=== PATIENT | male | born 2000 | race Caucasian/White ===

== ENCOUNTER 2020-06-03 17:00 | Emergency (ER) | payer OTHER, SELFPAY ==
[2020-06-03 17:09] VITALS: BP 125/56; PULSE 74; RESP 16; TEMP 36.8; O2SAT 100
--- NOTE | 2020-06-03 17:15 | ED.SKABFB ---
HPI - Skin/Abscess/Foreign Bdy General Chief complaint: Skin/Abscess/Foreign Body Stated complaint: rash on legs/torso/arms Time Seen by Provider: 06/03/20 17:15 Source: patient and RN notes reviewed Mode of arrival: ambulatory Limitations: no limitations History of Present Illness HPI narrative: 19-year-old male presents with concern for rash. He reports exposure to poison gemma 4 days ago. Reports progressively worse rash on bilateral arms, legs, torso, face. Reports bilateral legs and feet are swollen and red. Denies fever, nausea vomiting, diarrhea, trouble breathing, trouble swallowing, swollen lips, swollen tongue. Denies any intervention other than Tylenol complaint: rash Related Data Home Medications Medication Instructions Recorded Confirmed quetiapine 50 mg PO HS 06/03/20 06/03/20 Allergies Allergy/AdvReac Type Severity Reaction Status Date / Time No Known Allergies Allergy Unknown Verified 06/03/20 17:15 Review of Systems Review of Systems: Narrative: CONSTITUTIONAL: Denies malaise, chills, sweats, or fever. EYES: Denies visual changes. Reports rash near eyes ENT: Denies difficulty swallowing, breathing CARDIOVASCULAR: Denies chest pain, palpitations RESPIRATORY: Denies cough or dyspnea. GASTROINTESTINAL: Denies abdominal pain, nausea, vomiting, diarrhea SKIN: Reports itchy generalized rash. Reports swollen, red ankles and feet MUSCULOSKELETAL: Denies musculoskeletal pain or myalgia. NEUROLOGIC: Denies numbness, weakness. All systems reviewed & are unremarkable except as noted in HPI and below PMFSH Comments At time of signature, agree with nursing past medical, surgical, social and family history. There is no relevant family history pertinent to the presenting complaint Exam Narrative: Exam Narrative: GENERAL: Well-appearing, well-nourished, and in no acute distress. HEAD: Normocephalic, atraumatic. EYES: PERRLA, conjunctivae clear, and EOMI. No nystagmus. ENT: Nares clear, turbinates pink, no rhinorrhea or epistaxis. Mucous membranes moist. TM pearly rodríguez with sharp light reflex bilaterally; no tragal tenderness. Oropharynx without erythema or lesions. Tonsils not enlarged and without exudate. NECK: Supple. No lymphadenopathy. No jugular venous distension, thyromegaly, or carotid bruits. Carotids were easily palpable bilaterally. CHEST: No respiratory distress. Clear to auscultation. No bony deformities, no asymmetry. Speaks in full sentences. HEART: Regular rate and rhythm. No murmur heard. Normal peripheral pulses. ABDOMEN: Soft, nontender, nondistended, normal active bowel sounds, no palpable masses. EXTREMITIES: Normal range of motion. No edema. Normal strength and sensation. SKIN: Warm, dry, no rash. NEURO: Alert and oriented x3. No focal deficits. Cranial nerves II through XII grossly intact PSYCH: Normal mood and affect Course Course Emergency Course: Patient is aware of diagnosis, understands and agrees to treatment plan. Anticipatory guidance given. Patient agrees to follow-up as directed and is aware of reasons to seek care at the emergency department. Portions of this record may have been created with voice recognition software Vital Signs Vital signs: Vital Signs Temperature 98.3 F 06/03/20 17:09 Pulse Rate 74 06/03/20 17:09 Respiratory Rate 16 06/03/20 17:09 Blood Pressure 125/56 L 06/03/20 17:09 Pulse Oximetry 100 06/03/20 17:09 Temperature 98.3 F 06/03/20 17:09 Pulse Rate 74 06/03/20 17:09 Respiratory Rate 16 06/03/20 17:09 Blood Pressure 125/56 L 06/03/20 17:09 Pulse Oximetry 100 06/03/20 17:09 Reviewed. MDM - Skin/Abscess/Foreign Bdy MDM Narrative Medical decision making narrative: Does not appear at this time to be erythema multiforme, bullous, SJS, TEN; no evidence at this time to suggest RMSF, endocarditis or Lyme disease; patient looks well, nontoxic and is tolerating oral intake; no neurologic signs or symptoms; no headache, photophobi
[2020-06-03] MEDS: methylPREDNISolone SOD SUCC 125 MG VIAL IM (17:29)
== END 2020-06-03 17:49 | disposition home or self-care (01) ==
PROVIDERS: Emergency Provider Nurse Practitioner; PCP Internal Medicine
DX: L25.5 Unspecified contact dermatitis due to plants, except food (principal); L03.119 Cellulitis of unspecified part of limb; F31.9 Bipolar disorder, unspecified
CPT/HCPCS: 96372; 99203; G0463; J2930

== ENCOUNTER 2021-09-09 13:12 | Emergency (ER) | payer OTHER, SELFPAY ==
[2021-09-09 13:15] VITALS: BP 111/75; PULSE 128; RESP 24; TEMP 36.6; O2SAT 99
--- NOTE | 2021-09-09 13:29 | ED.ANXIETY ---
HPI - Anxiety General Chief Complaint: Anxiety Stated Complaint: anxiety attack,shortness of breath Time Seen by Provider: 09/09/21 13:30 Source: patient and RN notes reviewed Mode of arrival: ambulatory Limitations: no limitations History of Present Illness HPI narrative: Patient is a 20-year-old male patient who ambulated into the [facility] today patient states he stayed up all night last night drinking with friends. Patient states he woke woke up feeling anxious. Patient states he is worried about what he did from the hours of 4-9 this morning. Patient states he does not remember. Patient told the nurse he drove a float for his sister's volleyball team. Related Data Home Medications Medication Instructions Recorded Confirmed No Home Medications 09/09/21 09/09/21 Allergies Allergy/AdvReac Type Severity Reaction Status Date / Time No Known Allergies Allergy Unknown Verified 09/09/21 13:31 Review of Systems Review of Systems: CONSTITUTIONAL: Denies body aches, fever, chills, or sweats. EYES: Denies visual changes, redness, or discharge. ENT: Denies rhinorrhea, congestion, sore throat, or otalgia. CARDIOVASCULAR: Denies chest pain, palpitations, or edema. RESPIRATORY: Denies cough or dyspnea. GASTROINTESTINAL: Denies abdominal pain, nausea, vomiting, or diarrhea. GENITOURINARY: Denies dysuria or hematuria. SKIN: Denies rash, itching, or wounds. MUSCULOSKELETAL: Denies back pain, joint pain, or myalgia. NEUROLOGIC: Denies headache, numbness, tingling, or weakness. PSYCH: Denies depression + anxiety. All systems reviewed & are unremarkable except as noted in HPI and below PMFSH Social History Social History Substance use type: does not use Comments At time of signature, I have reviewed and agree with nursing past medical, surgical, social and family history unless otherwise noted. Please see nursing chart for further information. There is no relevant family history pertinent to the presenting complaint Exam Narrative: GENERAL: Well-appearing, well-nourished, and in no acute distress. HEAD: Normocephalic, atraumatic. EYES: EOMI. No redness or drainage. Conjunctivae normal. ENT: Mucous membranes pink and moist. Nares clear. No rhinorrhea. NECK: Normal AROM. Supple. HEART: Regular rate and rhythm. No murmur appreciated. Normal peripheral pulses. MUSCULOSKELETAL: No bony tenderness. EXTREMITIES: Normal range of motion. No edema. SKIN: Warm, dry, no rash. Capillary refill normal. Normal skin turgor. NEURO: No focal deficits. Alert and oriented x3. Gait steady. PSYCH: Normal affect. Patient hands shaky, heart rate increases. patient holding normal conversation and interacting appropriately. Course Vital Signs Vital signs: Vital Signs Temperature 36.6 C 09/09/21 13:15 Pulse Rate 128 H 09/09/21 13:15 Respiratory Rate 24 H 09/09/21 13:15 Blood Pressure 111/75 09/09/21 13:15 Pulse Oximetry 99 09/09/21 13:15 Temperature 36.6 C 09/09/21 13:15 Pulse Rate 128 H 09/09/21 13:15 Respiratory Rate 24 H 09/09/21 13:15 Blood Pressure 111/75 09/09/21 13:15 Pulse Oximetry 99 09/09/21 13:15 Patient reviewed MDM - Anxiety Differential Diagnosis Differential diagnosis: Likely hyperventilation and acute anxiety Medical Records Attestation: I reviewed the patient's medical records. Critical Care Time Critical Care Time Critical Care Time: No Discharge Plan Discharge Clinical Impression: Acute anxiety Hangover Qualifiers: Complication of substance-induced condition: uncomplicated Qualified Code(s): F10.120 - Alcohol abuse with intoxication, uncomplicated Patient Disposition: Home, Self-Care Condition: Stable Instructions: Antibiotic Form, Anxiety (ED) Additional Instructions: Increase fluids and electrolyte drinks May take Bendaryl 1-2 tablets for sleep tonight. Follow up with y our PCP on Mon
== END 2021-09-09 13:42 | disposition home or self-care (01) ==
PROVIDERS: Emergency Provider Nurse Practitioner Family; PCP Internal Medicine
DX: F41.9 Anxiety disorder, unspecified (principal); F10.120 Alcohol abuse with intoxication, uncomplicated
CPT/HCPCS: 99211; G0463

== ENCOUNTER 2025-07-03 18:38 | Emergency (ER) | payer OTHER, SELFPAY ==
--- OUTSIDE RECORDS SUMMARY | 2025-07-03 18:41 | XMS_ITS | Clinical Summary ---
Author Organization [facility] Address [address] [place] [address] Care Team Providers Care Healthcare Analyst Name Role Phone Dixie eHnry Primary Care Provider [phone] Fran Ortega MD Unavailable + [phone] Chris Alfred MD Unavailable [phone] Allergies No known active allergies Medications fluticasone propionate (FLONASE) 50 mcg/actuation nasal sprayIndications :Intractable headache, unspecified chronicity pattern, unspecified headache type Administer 2 sprays into each nostril daily 1 each 4 Active amitriptyline (ELAVIL) 10 mg tabletIndication s:Migraine without aura and without status migrainosus, not intractable Take 1 tablet (10 mg total) by mouth nightly 90 tablet 1 4 Active omeprazole (PriLOSEC) 20 mg capsule Take 1 capsule (20 mg total) by mouth daily 90 capsule 3 5 Active Active Problems Problem Noted Date Diagnosed Date Intractable headache, unspec ified chronicity pattern, unspecified headache type 09/30/2024 Overweight (BMI 25.0-29.9) 01/13/2024 Assessment & Plan (01/13/2024 8:10 AM [facility] [employer] [facility]): BMI Follow-up includes: nutrition counseling. Class 1 obesity due to exces s calories without serious comorbidity with body mass index (BMI) of 30.0 to 30.9 in adult 12/31/2023 Assessment & Plan (12/31/2023 1:24 PM [facility]): Reviewed BMI Focus on healthy diet options Work on healthy changes Migraine without aura and wi thout status migrainosus, not intractable 04/10/2023 Assessment & Plan (12/31/2023 1:26 PM [employer]): Chronic and stable. Continue Excedrin as needed. If migraines worsen or no longer respond to [id number] medication patient will follow-up. ZAIN (generalized anxiety disorder) 01/03/2023 Assessment & Plan (12/31/2023 1:25 PM [employer]): Chronic and controlled without medication. Patient is doing well. Follow-up as needed for new or worsening symptoms. Assessment & Plan (01/03/2023 11:45 AM [employer]): Chronic and uncontrolled. Symptoms have been worsening for the past 2 months. He is interested in starting medication again. He previously took Zoloft and did well. However, with his history of bipolar disorder I am concerned about potentially precipitating a manic episode. Since he is currently denying any depression and bipolar symptoms, will treat his anxiety with BuSpar. Side effects discussed. He was agreeable to this plan. I have also prescribed hydroxyzine to take as needed for anxiety or panic attacks. I have asked him to send me a [employer] message in about 2 weeks to let me know how he is doing. We can increase the dose if needed. Patient voiced understanding and agreement with this plan. All questions answered today. Depression, major, recurrent 01/03/2023 Assessment & Plan (12/31/2023 1:24 PM [employer]): Chronic. See above. Bipolar disorder 01/03/2023 Assessment & Plan (12/31/2023 1:24 PM [employer]): Chronic. See above. Routine adult health maintenance 12/10/2022 Overview (12/11/2022): Health Maintenance: -PCV20: N/A -Tdap vaccine: 2022 -Influenza vaccine: due -Shingles vaccine: N/A -Colonoscopy: N/A -Last PSA: N/A -Last eye exam: N/A -Last MHA: N/A Assessment & Plan (12/31/2023 1:27 PM [employer]): Health Maintenance: -PCV20: N/A -Tdap vaccine: 2022 -Influenza vaccine: due -Shingles vaccine: N/A -Colonoscopy: N/A -Last PSA: N/A -Last eye exam: N/A -Last MHA: N/A Recommend annual flu shots. Patient is up-to-date on Tdap. Work on healthy diet and exercise habits. See me annually for routine physicals. Vitamin D deficiency 11/09/2022 Gastroesophageal reflux disease 11/06/2022 Assessment & Plan (07/28/2024 7:57 PM CDT): EGD 07/15/2024 that showed chronic inflammation in the GE junction without signs of intestinal metaplasia, moderate chronic active gastritis negative for H pylori. Patient currently taking omeprazole 40 mg daily with reflux well-controlled. Plan Continue 40 mg omeprazole for 3 more months then decrease to 20 mg daily. Continue to follow anti-reflux lifestyle modifications Assessment & Plan (05/15/2024 8:39 AM CDT): Epigastric burning radiating up to chest associated with sour taste in mouth Started 2 years ago progressively getting worse Took prilosec previously for about 30 days which helped but symptoms came back after stopping it Then tried famotidine 20 mg without significant relief Takes tums all the time like candies Could not find any trigger foods No dysphagia, odynophagia Eats a lot of red meat with hamburger and steak, works shift work, usually does not eat at least 4-5 hours before bedtime Takes NSAIDs as needed No known family history of colon cancer, liver disease, inflammatory bowel disease, or other GI pathologies No smoking, drinks about 2 days a week, no illicit drug use. Labs reviewed from 01/2024 that showed mildly elevated potassium 5.2 otherwise normal BMP, TSH, CBC No prior endoscopies Plan Start omeprazole 40 mg daily, take 30 minutes before breakfast Given refractory symptoms will schedule EGD to assess for esophagitis, hiatal hernia Follow antireflux lifestyle modifications Assessment & Plan (12/31/2023 1:25 PM [employer]): Chronic and worsening. Will try Pepcid 20 mg b.i.d.. If no improvement after 1 month patient will let me know, will refer to GI for EGD. Encouraged healthy diet and exercise, work on weight loss Avoid trigger foods including: caffeine, spicy, fried foods, tomatoes. Eat small meals throughout the day. Do not eat right before bed. No late night snacking Do not lay down after eating. Abnormal electrocardiogram 11/06/2022 Resolved Problems Problem Noted Date Diagnosed Date Resolved Date Other abnormal glucose 11/09/202212/30 Right elbow tendonitis 07/28/201812/10 Right shoulder strain 12/17/20172022 Encounter for routine child health examination without abnormal findings 06/20/2017 Otitis media 02/11/2017 06/29/2022 Overview (04/05/2017): Otitis media Chest pain 11/15/2016 06/29/2022 Overview (02/14/2017): Chest pain Viral enteritis 11/15/2016 09/23/2020 Overview (02/14/2017): Viral intestinal infection Sinusitis 10/11/2014 06/29/2022 Overview (02/14/2017): Sinusitis Immunizations Immunization Administration Dates Next Due HPV, Quadrivalent 11/12/2012,07/11/2012,03/23/20 12 Influenza, Trivalent, Cell Culture-based MDCK, Preservative Free, Antibiotic Free, Intramuscular 09/04/2004 Influenza, Trivalent, IM (MDV) 09/21/2013,2011 Influenza, Unspecified 10/06/2024(Deferr ed: Patient Refused),08/11/2023(Deferred: Patient Refused),08/11/2022(Deferred: Patient Refused),08/11/2021(Deferred: Patient Refused) Meningococcal ACWY, Unspecified 04/10/2012 Meningococcal MCV4P (Menactra) 06/20/2017 Tdap 12/11/2022,04/10/2012 Varicella 06/14/2015 Surgical History Surgery Date Site/Laterality Comments NO PAST SURGERIES Medical History Medical History Date Comments Chronic chest pain Family History Medical History Relation Name Comments Heart attack Maternal Grandfather Quinton Bain Cancer Mother's Sister Marah dominguez Other Other No family histo ry of Early cardiac <50; Relation Name Status Comments Maternal Grandfather Quinton Bain Mother's Sister Marah dominguez Other Social History Tobacco Use Types Packs/Day Years Used Date Smoking Tobacco: Former Cigarettes 0 2 1 12/12/2018 - 10/11/2021 Vaping Smokeless Tobacco: Former Chew Quit: 10/26/2022 Tobacco Cessation:Counseling Given: Not Answered Alcohol Use Standard Drinks/Week Comments Defer 0 (1 standard drink = 0.6 oz pur e alcohol) [facility] [employer] Answer Date Recorded In the past 12 months has [facility] [employer], gas, oil, or water [employer] threatened to shut off services in your home? No 10/01/2024 Humiliation, Afraid, Rape, and Kick questionnair e Answer Date Recorded Within the last year, have y ou been afraid of your partner or ex-partner? No 10/01/2024 Within the last year, have y ou been humiliated or emotionally abused in other ways by your partner or ex-partner? No Within the last year, have y ou been kicked, hit, slapped, or otherwise physically hurt by your partner or ex-partner? No 10/01/2024 Within the last year, have y ou been raped or forced to have any kind of sexual activity by your partner or ex-partner? No 10/01/2024 Social Connection and Isolation Panel Answer Date Recorded In a typical week, how many times do you talk on the phone with family, friends, or neighbors? More than three times a week 10/01/2024 How often do you get togethe r with friends or relatives? More than three times a week 10/01/2024 How often do you attend chur ch or yazidism services? Never 10/01/2024 Do you belong to any clubs o r organizations such as anglican groups, unions, fraternal or athletic groups, or school groups? No 10/01/2024 How often do you attend meet ings of the clubs or organizations you belong to? Never 10/01/2024 Are you , , di vorced, , never , or living with a partner? Never 10/01/2024 AUDIT-C Answer Date Recorded Q1: How often do you have a drink containing alc ohol? 2-3 times a week 10/01/2024 Q2: How many drinks containi ng alcohol do you have on a typical day when you are drinking? 3 or 4 10/01/2024 Q3: How often do you have si x or more drinks on one occasion? Monthly 10/01/2024 Overall Financial Resource Strain (CARDIA) Answe r Date Recorded How hard is it for you to pa y for the very basics like food, housing, medical care, and heating? Not hard at all 10/01/2024 PHQ-2 Answer Date Recorded PHQ-2 Total Score (If total score is 3 or more points, staff should administer the PHQ-9) 0 10/27/2024 [facility] - Occupational Stress Questionnaire Answer Date Recorded Do you feel stress - tense, restless, nervous, or anxious, or unable to sleep at night because your mind is troubled all the time - these days? To some extent 10/01/2024 Exercise Vital Sign Answer Date Recorde d On average, how many days pe r week do you engage in moderate to strenuous exercise (like a brisk walk)? 7 days 10/01/2024 On average, how many minutes do you engage in exercise at this level? 60 min 10/01/2024 Hunger Vital Sign Answer Date Recorded Within the past 12 months, y ou worried that your food would run out before you got the money to buy more. Never true 10/01/20 24 Within the past 12 months, t he food you bought just didn't last and you didn't have money to get more. Never true 10/01/2024 PRAPARE - Transportation Answer Date Re corded In the past 12 months, has l ack of transportation kept you from medical appointments or from getting medications? No 09/12 In the past 12 months, has l ack of transportation kept you from meetings, work, or from getting things needed for daily living? No 10/01/2024 PHQ-9 Answer Date Recorded PHQ-9 Total Score 0 10/01/2024 Housing Stability Vital Sign Answer Michael e Recorded In the last 12 months, was t here a time when you were not able to pay the mortgage or rent on time? No 10/01/2024 In the past 12 months, how m any times have you moved where you were living? 0 10/01/2024 At any time in the past 12 m [facility], were you homeless or living in a custodial (including now)? No 10/01/2024 Personal Safety Answer Date Recorded Have you ever been in or are you currently in a harmful physical or emotional relationship or is someone making you feel afraid or unsafe? Denies 09/30/2024 Sex and Gender Information Value Date Recorded Sex Assigned at Not on file Legal Sex Male 7:12 PM [employer] Gender Identity Male 04/04/2023 4:06 PM CDT Sexual Orientation Not on file Obstetrics History Last Filed Vital Signs Vital Sign Reading Time Taken Comments Blood Pressure 110/74 10/27/2024 7:36 AM [employer] [employer] Pulse 78 10/27/2024 7:36 AM [employer] Temperature 36.6 C (97.8 F) 10/27/2024 7:36 AM [employer] Respiratory Rate 16 10/27/2024 7:36 AM [employer] Oxygen Saturation 98% 10/27/2024 7:36 AM [employer] Inhaled Oxygen Concentration - - Weight 99.2 kg (218 lb 11.2 oz) 10/27/2024 7:36 AM [employer] Height 175.3 cm (5' 9) 10/27/2024 7:36 AM [employer] Body Mass Index 32.3 10/27/2024 7:36 AM [employer] Plan of Treatment Health Maintenance Due Date Last Done Comments Hepatitis C Screening 2000 Varicella Vaccines (2 of 2 - 13+ 2-dose series) 07/12/2015 06/14/2015 Hepatitis B Screening 2018 Regular Well Visit/Exam 18-64 12/31/2024 12/31/2023 Influenza Vaccine (#1) 2025 3, 10/09/2012, 09/04/2004 Depression Screening 10/27/2025 10/27/2024, 10/01/2024, 01/13/2024, Additional history exists DTaP/Tdap/Td Vaccine (3 - Td or Tdap) 12/11/2032 12/11/2022, 04/10/2012 HPV Vaccines Completed 11/12/2012, 06/13, 03/23/2012 Pneumococcal vaccine <65 Aged Out No longer eligible based on patient's age to complete this topic Insurance [place] [id number] [facility] [place] [employer] Advance Directives For more information, please contact: [phone] * Full Code (Latest Code Status on File) Date Activated Date Inactivated Comments 09/30/2024 11:52 PM 10/01/2024 8:07 PM * Full Code Date Activated Date Inactivated Comments 09/30/2024 11:06 PM 09/30/2024 11:52 PM * Full Code Date Activated Date Inactivated Comments 07/17/2024 9:00 AM 07/17/2024 2:54 PM * Full Code Date Activated Date Inactivated Comments 07/17/2024 9:00 AM 07/17/2024 9:00 AM Care Teams Healthcare Analyst Relationship Specialty Start Date End Date Dixie Henry PA [address] [place], [place] [id number] PCP - General Family Medicine 12/13/22 Fran Ortega MD [address] [place] [address] Consulting Physician Family Medicine 12/13/22 Chris Alfred MD [address] [place] [address] [place] [address] Consulting Physician Neurology 10/01/24
[2025-07-03 18:46] VITALS: BP 122/89; PULSE 95; RESP 18; TEMP 36.1; O2SAT 97
--- NOTE | 2025-07-03 19:01 | PC.NURSE ---
report to lui dominguez
--- NOTE | 2025-07-03 19:17 | PC.NURSE ---
steri strips placed over laceration line that has dermabond on it. patient is aware to not pull on steri stips or to leave submerged in water. finger splint placed over thumb laceration
--- NOTE | 2025-07-03 19:18 | ED.WOUNDLAC ---
HPI - Wound/Laceration General Chief Complaint: Wound/Laceration Stated Complaint: hand laceration Time Seen by Provider: 07/03/25 18:56 Source: patient Mode of arrival: ambulatory Limitations: no limitations History of Present Illness HPI narrative: this is a 24-year-old male that has a non gaping laceration to the distal right thumb currently no bleeding no numbness or tingling has good range of motion no other injuries noted. Onset (ago): hour(s) Extremity Location: Right: hand ( Distal right thumb laceration approximately 2cm in length on gait) Place: outdoors Context: accidental Associated symptoms: none Related Data Home Medications ?Medication ?Instructions ?Recorded ?Confirmed ?Last Taken ?Type No Home Medications 09/09/21 09/09/21 Unknown History Allergies Allergy/AdvReac Type Severity Reaction Status Date / Time No Known Allergies Allergy Unknown Verified 09/09/21 13:31 Review of Systems Review of Systems: All systems reviewed & are unremarkable except as noted in HPI and below PMFSH Social History Social History Substance use type: does not use Exam Const: General: healthy appearing Nutritional Appearance: well nourished Orientation/consciousness: patient oriented x3 Limitations: no limitations Neck: Neck: normal visual inspection, no lymphadenopathy and no meningeal signs Chest: Chest palpation & inspection: normal inspection of the chest Resp: Effort & Inspection: normal respiratory effort Auscultation: clear to auscultation bilaterally Cardio: Rate: regular rate Rhythm: regular rhythm GI: GI Palp: Yes Soft to palpation Skin: Wounds: wounds noted Other: distal end of his right thumb with a non gaping laceration approximately 2cm in length Neuro: General: patient oriented x3, moves all extremities and no meningeal signs Course Course Emergency Course: Dermabond applied to the laceration site the right distal thumb patient tolerated procedure well tetanus updated. Vital Signs Vital signs: Vital Signs Temperature 36.1 C L 07/03/25 18:46 Pulse Rate 95 07/03/25 18:46 Respiratory Rate 18 07/03/25 18:46 Blood Pressure 122/89 07/03/25 18:46 Pulse Oximetry 97 07/03/25 18:46 Oxygen Delivery Room Air 07/03/25 18:46 Temperature 36.1 C L 07/03/25 18:46 Pulse Rate 95 07/03/25 18:46 Respiratory Rate 18 07/03/25 18:46 Blood Pressure 122/89 07/03/25 18:46 Pulse Oximetry 97 07/03/25 18:46 Oxygen Delivery Room Air 07/03/25 18:46 Procedures Laceration Laceration 1: Date: 07/03/25 Time: 19:21 Site: upper extremity Side (If applicable): right Description: linear Depth: simple, single layer Pre-repair: wound explored ====== Skin Level ====== Skin layer closed with: dermabond ====== Subcutaneous Layer ====== ====== Muscle Layer ====== ====== Tendon Layer ====== Discharge Plan Discharge Clinical Impression: Laceration Patient Disposition: Home Condition: Stable Instructions: Antibiotic Form, Laceration (ED) Additional Instructions: Advised to follow with primary if symptoms persist or worsen. Patient Language: Ukrainian Prescriptions: No Action No Home Medications Follow-up/Referrals: Carl,ANNETTA Castillo [Primary Care Provider, Unknown] Time of Disposition: 19:21
[2025-07-03] MEDS: TETANUS,DIPHTHERIA,AC PERTUSSIS ADULT 0.5 ML (ADACEL) IM (19:20)
== END 2025-07-03 19:33 | disposition home or self-care (01) ==
PROVIDERS: Emergency Provider Emergency Medicine; PCP Physician Assistant
DX: S61.011A Laceration without foreign body of right thumb without damage to nail, initial encounter (principal); W45.8XXA Other foreign body or object entering through skin, initial encounter; Z23 Encounter for immunization
CPT/HCPCS: 12001; 90471; 90715; 99282